=== PATIENT | female | born 1980 | race Caucasian/White ===

== ENCOUNTER 2019-07-06 15:29 | Emergency (ER) | payer OTHER, SELFPAY ==
[2019-07-06 16:28] VITALS: BP 128/87; PULSE 99; RESP 20; TEMP 36.9; O2SAT 99
--- NOTE | 2019-07-06 17:17 | ED.URI ---
HPI - URI/Sore Throat General Chief Complaint: Upper Respiratory Infection Stated Complaint: Possible Strep Time Seen by Provider: 07/06/19 17:09 Source: patient and RN notes reviewed Mode of arrival: ambulatory Limitations: no limitations History of Present Illness HPI Narrative: Patient presents todayComplaint of a one-week history of sore throat, Headache, and suprapubic pain. Denies fever, nausea, vomiting. Patient has chronic diarrhea related to irritable bowel syndrome. Denies cough, congestion, rhinorrhea. She has been taking Tylenol without relief. MD elicited complaint: sore throat Related Data Home Medications Medication Instructions Recorded Confirmed clonazepam 0.5 mg PO HS 07/06/19 07/06/19 fluoxetine 10 mg PO DAILY 07/06/19 07/06/19 omeprazole 40 mg PO DAILY 07/06/19 07/06/19 simvastatin 20 mg PO DAILY 07/06/19 07/06/19 zolpidem 10 mg PO HS 07/06/19 07/06/19 Allergies Allergy/AdvReac Type Severity Reaction Status Date / Time erythromycin base Allergy Unknown Hives Verified 07/06/19 17:05 Review of Systems Review of Systems: Narrative: CONSTITUTIONAL: Denies body aches, fever, chills, or sweats. EYES: Denies visual changes, redness, or discharge. ENT: Denies rhinorrhea, congestion, or otalgia.+Sore throat CARDIOVASCULAR: Denies chest pain, palpitations, or edema. RESPIRATORY: Denies cough or dyspnea. GASTROINTESTINAL: Denies nausea, vomiting, or diarrhea.+Abdominal pain GENITOURINARY: Denies dysuria or hematuria. SKIN: Denies rash, itching, or wounds. MUSCULOSKELETAL: Denies back pain, joint pain, or myalgia. NEUROLOGIC: Denies , numbness, tingling, or weakness.+Headache PSYCH: Denies depression or anxiety. [facility] Past Medical History Medical History (Updated 07/06/19 @ 17:43 by Marimar Trujillo, ACCOUNTING RECRUITER, ) Irritable bowel syndrome Social History Social History Smoking status: Current every day smoker Alcohol intake: never Comments At time of signature, I have reviewed and agree with nursing past medical, surgical, social and family history unless otherwise noted. Please see nursing chart for further information. There is no relevant family history pertinent to the presenting complaint Exam Narrative: Exam Narrative: GENERAL: Well-appearing, well-nourished, and in no acute distress. HEAD: Normocephalic, atraumatic. EYES: EOMI. No redness or drainage. Conjunctivae normal. ENT: Mucous membranes pink and moist. Nares clear. No rhinorrhea. TMs normal bilaterally. Throat normal. Uvula midline. NECK: Normal AROM. Supple. No lymphadenopathy. CHEST: No respiratory distress. Clear to auscultation. HEART: Regular rate and rhythm. No murmur appreciated. Normal peripheral pulses. ABDOMEN: Soft, nondistended, normal active bowel sounds.+Mild suprapubic tenderness MUSCULOSKELETAL: No bony tenderness. EXTREMITIES: Normal range of motion. No edema. SKIN: Warm, dry, no rash. NEURO: No focal deficits. Alert and oriented x3. Gait steady. PSYCH: Normal affect. No signs of depression or anxiety. Course Vital Signs Vital signs: Vital Signs Temperature 98.5 F 07/06/19 16:28 Pulse Rate 99 07/06/19 16:28 Respiratory Rate 20 07/06/19 16:28 Blood Pressure 128/87 07/06/19 16:28 Pulse Oximetry 99 07/06/19 16:28 Temperature 98.5 F 07/06/19 16:28 Pulse Rate 99 07/06/19 16:28 Respiratory Rate 20 07/06/19 16:28 Blood Pressure 128/87 07/06/19 16:28 Pulse Oximetry 99 07/06/19 16:28 Reviewed. Pt has been instructed to follow up with her PCP regarding her elevated blood pressure today. MDM - URI/Sore Throat Differential Diagnosis Differential diagnosis: Likely upper respiratory infection, viral infection, pharyngitis and other (Strep throat, UTI, IBS) Lab Data Attestation: I reviewed the patient's lab results. Labs: Strep Screen Presumptive Negative *(Reference Range: Negative)* Urine Glucose Negative Reference Ra
--- NOTE | 2019-07-06 17:30 | PC.NURSE ---
NO UC ORDERED PER MAYELIN
== END 2019-07-06 17:45 | disposition home or self-care (01) ==
PROVIDERS: Emergency Provider Nurse Practitioner
DX: B34.9 Viral infection, unspecified (principal); F17.200 Nicotine dependence, unspecified, uncomplicated; E78.00 Pure hypercholesterolemia, unspecified; F41.9 Anxiety disorder, unspecified; F32.9 Major depressive disorder, single episode, unspecified
CPT/HCPCS: 81003; 87081; 87880; 99213; G0463

== ENCOUNTER 2020-10-03 18:21 | Emergency (ER) | payer OTHER, SELFPAY ==
--- NOTE | ~2020-10-03 | XR_ITS ---
EXAMINATION: XR chest 2V 10/03/2020 18:41 INDICATION: Cough and congestion PROCEDURE: 2 view chest COMPARISON: No prior studies for comparison. FINDINGS: The lungs are clear. The cardiomediastinal silhouette is within normal limits. There are no pleural effusions. There is no pneumothorax suspected. IMPRESSION: 1: NO ACUTE CARDIOPULMONARY DISEASE. Reviewed, dictated and finalized at location A.
--- NOTE | 2020-10-03 18:26 | ED.SOB ---
HPI - SOB/Dyspnea General Chief Complaint: Shortness of Breath/Dyspnea Stated Complaint: Weezing coughing Time Seen by Provider: 10/03/20 18:26 Source: patient and RN notes reviewed History of Present Illness HPI Narrative: Patient is a 39-year-old female who presents the urgent care with complaints of cough and wheezing for 1 month. Patient states that she had to call 911 due to shortness of breath at that time and was taken to the hospital and diagnosed with bronchitis. Patient was discharged with an inhaler and has been on 2 rounds of amoxicillin since then. Patient states that she has been using her daughter's albuterol nebulizer because it works better than her inhaler . Patient denies of any fevers, nausea, vomiting. States that she feels like she pulled a muscle from all the coughing . Patient has been taking Aleve and decongestions [id number]. Patient has been tested for Covid a couple times since her visit to the emergency room, which have all been negative. No other acute complaints. No acute distress noted. Patient aware of the plan of care. Some parts of this dictation were generated by voice recognition software and may contain typographical and/or grammatical inaccuracies. Related Data Home Medications Medication Instructions Recorded Confirmed clonazepam 0.5 mg PO HS 07/06/19 07/06/19 omeprazole 40 mg PO DAILY 07/06/19 07/06/19 simvastatin 20 mg PO DAILY 07/06/19 10/03/20 zolpidem 10 mg PO HS 07/06/19 10/03/20 citalopram 40 mg PO DAILY 10/03/20 10/03/20 Allergies Allergy/AdvReac Type Severity Reaction Status Date / Time erythromycin base Allergy Unknown Hives Verified 07/06/19 17:05 Review of Systems Review of Systems: Narrative: CONSTITUTIONAL: Denies fever, chills, or sweats. EYES: Denies visual changes, redness, or discharge. ENT: Denies rhinorrhea, congestion, sore throat, or otalgia. CARDIOVASCULAR: Denies chest pain, palpitations, or edema. RESPIRATORY: Reports of cough, wheezing and dyspnea GASTROINTESTINAL: Denies abdominal pain, nausea, vomiting, or diarrhea. GENITOURINARY: Denies dysuria or hematuria. SKIN: Denies rash or itching. MUSCULOSKELETAL: Denies back pain, joint pain, or myalgia. NEUROLOGIC: Denies headache, numbness, or weakness. All other systems reviewed are negative, except as documented in HPI. [facility] Past Medical History Medical History (Updated 10/03/20 @ 19:03 by JIMMY Carmen) Irritable bowel syndrome Social History Social History Smoking status: Current every day smoker Alcohol intake: never Gender identity (if verbalized by the patient): Female Comments At the time of my signature, I reviewed and agree with the nursing past medical, surgical, social, and family history. There is no relevant family history pertinent to the patient complaint. Exam Narrative: Exam Narrative: GENERAL: This is a well-nourished, well-developed patient, in no apparent distress. HEAD: normocephalic, atraumatic. EYES: PERRL. Sclera clear/white. Vision is grossly intact. EARS: External ears normal, auditory canals clear and without drainage, TMs normal without perforation. Hearing grossly intact. NOSE: External nose normal with no obvious nasal discharge, nares without redness, no rhinorrhea. THROAT: Mucous membranes moist, posterior pharynx clear. NECK: Neck supple, non-tender without lymphadenopathy, masses or thyromegaly. CARDIOVASCULAR: Regular rate and rhythm without murmurs, gallops, or rubs. Substernal tenderness RESPIRATORY: Inspiratory and expiratory wheezes with crackles throughout, diminished left lower SKIN: warm, intact with no suspicious lesions or rash, good texture and turgor. NEURO: awake, alert, and oriented to person, place and time. There were no obvious focal neurologic abnormalities. EXTREMITIES: No clubbing, cyanosis, or edema. Course Vital Signs Vital signs: Vital Signs Temperature 97.8 F 10/03/20 18:27 Pulse Rate 97 10/03/20 18:27
[2020-10-03 18:27] VITALS: BP 138/90; PULSE 97; RESP 20; TEMP 36.6; O2SAT 96
== END 2020-10-03 19:09 | disposition home or self-care (01) ==
PROVIDERS: Emergency Provider Nurse Practitioner Family; PCP Family Medicine
DX: J40 Bronchitis, not specified as acute or chronic (principal); F17.200 Nicotine dependence, unspecified, uncomplicated; E78.00 Pure hypercholesterolemia, unspecified; F41.9 Anxiety disorder, unspecified; F32.9 Major depressive disorder, single episode, unspecified
CPT/HCPCS: 71046; 99213; G0463

== ENCOUNTER 2025-04-15 17:10 | Emergency (ER) | payer OTHER, SELFPAY ==
[2025-04-15 17:16] VITALS: BP 137/87; PULSE 96; RESP 20; TEMP 36.3; O2SAT 98
--- NOTE | 2025-04-15 17:19 | ED_ITS ---
HPI - URI/Sore Throat General Chief Complaint: Upper Respiratory Infection Stated Complaint: cough/wheezing Time Seen by Provider: 04/15/25 17:24 Source: patient, RN notes reviewed and old records reviewed Mode of arrival: ambulatory Limitations: no limitations History of Present Illness HPI Narrative: 44-year-old female presents to the [facility] with cough and wheezing. Reports URI symptoms for 2 weeks. States that she has used her inhaler, cold and flu medication. Patient is a 1 pack-a-day smoker. Onset (ago): week(s) (2) Treatments prior to arrival: cold medicine Related Data Home Medications ?Medication ?Instructions ?Recorded ?Confirmed ?Last Taken ?Type omeprazole 40 mg capsule,delayed 40 mg PO DAILY 07/06/19 Unknown History release simvastatin 20 mg tablet 20 mg PO DAILY 07/06/1909/04 Unknown History zolpidem 10 mg tablet 10 mg PO HS 07/06/19 5 Unknown History citalopram 40 mg tablet 40 mg PO DAILY 10/03/2009/11 Unknown History albuterol sulfate 90 mcg/actuation 2 inh inhalation Q4 -6H PRN 04/15/25 Unknown History breath activated powder inhaler shortness of breath or wheezing montelukast 10 mg tablet mg 04/15/25 Unknown History simvastatin 40 mg tablet mg 04/15/25 Unknown History zolpidem 5 mg tablet mg 04/15/25 Unknown History Allergies Allergy/AdvReac Type Severity Reaction Status Date / Time erythromycin base Allergy Unknown Hives Verified 07/06/19 17:05 Review of Systems Review of Systems: All systems reviewed & are unremarkable except as noted in HPI and below Constitutional: Constitutional: Reports no additional constitutional complaints ENT: Reports system reviewed and no additional complaints, except as documented Cardiovascular: Cardiovascular: Reports no additional cardiovascular complaints, Denies chest pain and Denies dyspnea Respiratory: Respiratory: Reports as per HPI, Denies chest congestion, Reports cough, Reports dyspnea and Reports wheezing Musculoskeletal: Musculoskeletal: Reports no additional musculoskeletal complaints Integumentary/Breasts: Skin/Breast: Reports system reviewed and no additional complaints, except as docu PMF[facility] Past Medical History Medical History Irritable bowel syndrome Social History Social History Smoking status: Current every day smoker Alcohol intake: never Gender identity (if verbalized by the patient): Female Comments At the time of my signature, I reviewed and agree with the nursing past medical, surgical, social, and family history. There is no relevant family history pertinent to the patient complaint. Exam Const: General: cooperative, healthy appearing, comfortable, no acute distress, well developed, alert and well nourished Nutritional Appearance: well nourished Orientation/consciousness: patient oriented x3 Limitations: no limitations HENMT: Head: normal to inspection Ears: hearing grossly normal bilaterally, external ears normal, TM's normal bilaterally, EAC's normal, mastoids normal and no periauricular adenopathy Mouth: Yes Normal oral and palatal mucosa present, Yes lip normal, Yes tongue normal and Yes moist mucous membranes abnormal Throat: posterior oropharynx normal, uvula midline and no uvular edema Eyes: General: appearance normal, both eyes and all related structures Alignment and Position: alignment normal Neck: Neck: normal visual inspection, full ROM, no lymphadenopathy and no meningeal signs Chest: Chest palpation & inspection: normal inspection of the chest Resp: Effort & Inspection: normal respiratory effort and able to speak in complete sentences Auscultation: no crackles, no rales, no rhonchi and wheezes (right lower) expiratory wheezes Cardio: Rate: regular rate Skin: General skin exam: normal color and no rashes or lesions noted Rashes: rashes noted Other: bilateral under breasts, yeasty in appearance, itchy Neuro: General: patient oriented x3, gait normal, moves all extremities and no meningeal signs Cognition (Neuro): normal cognition Speech: normal speech Gait exam (Neuro): Normal gait present Extrem: General: normal to inspection, full ROM, capillary refill normal and normal gait Psych: Appearance: grossly normal and well kempt Mental Status: mental status grossly normal Speech and movement: Normal speech and movement present and Clear speech present Affect: normal affect Attitude: cooperative Course Course Level of Care: Express Care Visit Vital Signs Vital signs: Vital Signs Temperature 97.4 F L 04/15/25 17:16 Pulse Rate 96 04/15/25 17:16 Respiratory Rate 20 04/15/25 17:16 Blood Pressure 137/87 04/15/25 17:16 Pulse Oximetry 98 04/15/25 17:16 Oxygen Delivery Room Air 04/15/25 17:16 Temperature 97.4 F L 04/15/25 17:16 Pulse Rate 96 04/15/25 17:16 Respiratory Rate 20 04/15/25 17:16 Blood Pressure 137/87 04/15/25 17:16 Pulse Oximetry 98 04/15/25 17:16 Oxygen Delivery Room Air 04/15/25 17:16 reviewed MDM MDM Narrative Medical decision making narrative: patient sitting in exam room. Patient is nontoxic, vitals stable. Patient with smoking history presents with cough congestion for 2 weeks. Patient is appropriate for outpatient treatment with steroids, antibiotic and inhaler, encourage use of a spacer with his inhaler. Patient appropriate for outpatient treatment with close follow-up patient also has concerns for a yeast infection underneath bilateral breasts and groin patient is appropriate for outpatient treatment with close follow-up Discharge instructions reviewed with patient, as well as provided in writing per nursing staff. The instructions also include specific and strict return/GO TO THE ER as well as f/u information. All questions have been answered, and the patient deny any further questions with discharge and discharge plan. Some parts of this dictation were generated by voice recognition software and may contain typographical and/or grammatical inaccuracies. Differential Diagnosis Differential Diagnosis: Differential diagnostic considerations for upper respiratory infection include upper respiratory infection, otitis media, sinusitis, viral infection, bronchitis, influenza, pharyngitis, strep, uvulitis.? Critical Care Time Critical Care Time Critical Care Time: No Discharge Plan Discharge Clinical Impression: Bronchitis, Skin yeast infection Patient Disposition: Home Condition: Stable Instructions: How to Stop Smoking (ED), Acute Bronchitis (ED), Skin Yeast Infection (ED) Additional Instructions: follow-up with primary care provider stop smoking new or worsening symptoms go directly to the emergency room Patient Language: Lithuanian Prescriptions: New clotrimazole 1 % cream 1 applic topical BID 14 Days Qty: 45 0RF doxycycline monohydrate 100 mg tablet 100 mg PO BID Qty: 14 0RF prednisone 20 mg tablet See Rx Instructions .Route .COMPLEX Qty: 15 0RF Rx Instructions: Take 40 mg daily for 5 days, 20 mg daily for 5 days albuterol sulfate 90 mcg/actuation HFA aerosol inhaler 2 puff inhalation QID PRN (Reason: shortness of breath or wheezing) Qty: 6.7 0RF (DME) Aerochamber MV Spacer See Rx Instructions .Route Qty: 1 0RF Rx Instructions: As directed No Action citalopram 40 mg tablet 40 mg PO DAILY albuterol sulfate 2.5 mg /3 mL (0.083 %) solution for nebulization 2.5 mg inhalation Q4H PRN (Reason: shortness of breath or wheezing) Qty: 75 0RF omeprazole 40 mg Capsule,Delayed Release(Dr/Ec) 40 mg PO DAILY simvastatin 20 mg Tablet 20 mg PO DAILY zolpidem 10 mg Tablet 10 mg PO HS simvastatin 40 mg tablet montelukast 10 mg tablet zolpidem 5 mg tablet albuterol sulfate 90 mcg/actuation aerosol powdr breath activated 2 inh inhalation Q4-6H PRN (Reason: shortness of breath or wheezing) Follow-up/Referrals: Maite,Rosaline Hernandez, CAMPAIGN SPECIALIST [Primary Care Provider, Unknown] - 1 Week Clinical Impression: Skin yeast infection; Bronchitis Time of Disposition: 17:41
== END 2025-04-15 17:45 | disposition home or self-care (01) ==
PROVIDERS: Emergency Provider Nurse Practitioner; PCP Nurse Practitioner
DX: J40 Bronchitis, not specified as acute or chronic (principal); B37.2 Candidiasis of skin and nail; F17.200 Nicotine dependence, unspecified, uncomplicated
CPT/HCPCS: 99213; G0463